=== PATIENT | female | born 1990 | race Caucasian/White ===

== ENCOUNTER 2023-10-04 22:28 | Emergency (ER) | payer SELFPAY ==
[2023-10-04 22:36] VITALS: BP 117/73
--- NOTE | 2023-10-04 23:09 | ED.GENMED ---
History of Present Illness
<DESTINY Gonzales - Last Filed: 10/05/23 05:56>
General
Chief Complaint: Blood and Body Fluid Exposure
Source: patient
Exam Limitations: none
Time Seen by Provider: 10/04/23 22:46
Nursing documentation reviewed up to this point in time: agreed with
History of Present Illness
History of Present Illness:
33 year old female presenting for evaluation of blood/bodily fluid exposure. Pt works in the [employer] and states she was splashed in the right eye with blood tinged sputum from a tracheostomy. Pt adds that she irrigated her eye with soap and water for
approximately 15 seconds prior to being seen in the ED. Denies changes in vision, pain, and discharge from the affected eye. Most recent tetanus booster was 2018 per pt.
Review of Systems
<DESTINY Gonzales - Last Filed: 10/05/23 05:56>
Review of Systems
Allergies reviewed?: Yes
All Other Systems: ROS reviewed and negative except as documented in HPI and ROS
Phy Exam
<DESTINY Gonzales - Last Filed: 10/05/23 05:56>
General Physical Exam
General Presentation: well appearing
General age: appears stated age
General Habitus: normal
General Mental: alert
General Hydration: appears well hydrated
Eye Exam
Eye Exam: PERRL, EOMI, conjunctiva normal and visual acuity normal
Course
<DESTINY Gonzales - Last Filed: 10/05/23 05:56>
Orders/Labs/Results
Orders:
Orders
10/04/23 23:03
Tetanus/Diphth/Acelpertussis [Adacel] 0.5 ml IM .ONCE ONE
10/04/23 23:04
Pt has had a significant HIV exposure? Routine
HIV Exposure is significant?: Yes
HIV Combo Urgent
Hepatitis B Surface Antibody Urgent
Hepatitis B Surface Antigen Urgent
Hepatitis C Antibody Urgent
10/04/23 23:07
Tetracaine HCl [Tetracaine 0.5% Ophthalmic Solution] 1 drop .ROUTE .STK-MED ONE
10/04/23 23:52
Tetracaine HCl [Tetracaine 0.5% Ophthalmic Solution] See Dose Instructions OPHTH ONCE ONE
Vital Signs
Initial and Last Documented VS:
Initial Vital Signs
Temp Pulse Resp BP Pulse Ox
97.9 F 78 18 117/73 96
10/04/23 22:36 10/04/23 22:36 10/04/23 22:36 10/04/23 22:36 10/04/23 22:36
Last Documented Vital Signs
Temp Pulse Resp BP Pulse Ox
97.9 F 78 18 117/73 96
10/04/23 22:36 10/04/23 22:36 10/04/23 22:36 10/04/23 22:36 10/04/23 22:36
<Dominick Stone, DO - Last Filed: 10/05/23 00:05>
Orders/Labs/Results
Orders:
Orders
10/04/23 23:03
Tetanus/Diphth/Acelpertussis [Adacel] 0.5 ml IM .ONCE ONE
10/04/23 23:04
Pt has had a significant HIV exposure? Routine
HIV Exposure is significant?: Yes
HIV Combo Urgent
Hepatitis B Surface Antibody Urgent
Hepatitis B Surface Antigen Urgent
Hepatitis C Antibody Urgent
10/04/23 23:07
Tetracaine HCl [Tetracaine 0.5% Ophthalmic Solution] 1 drop .ROUTE .STK-MED ONE
10/04/23 23:52
Tetracaine HCl [Tetracaine 0.5% Ophthalmic Solution] See Dose Instructions OPHTH ONCE ONE
Vital Signs
Initial and Last Documented VS:
Initial Vital Signs
Temp Pulse Resp BP Pulse Ox
97.9 F 78 18 117/73 96
10/04/23 22:36 10/04/23 22:36 10/04/23 22:36 10/04/23 22:36 10/04/23 22:36
Last Documented Vital Signs
Temp Pulse Resp BP Pulse Ox
97.9 F 78 18 117/73 96
10/04/23 22:36 10/04/23 22:36 10/04/23 22:36 10/04/23 22:36 10/04/23 22:36
<DESTINY Gonzales - Last Filed: 10/05/23 05:56>
MDM/Problems Addressed
MDM/Problems Addressed:
Nima lens applied to R eye for one hour.
Tetanus/Diphth/Acelpertussis [Adacel] 0.5 ml IM
Tetracaine HCl [Tetracaine 0.5% Ophthalmic Solution]
HIV Combo
Hepatitis B Surface Antibody
Hepatitis B Surface Antigen
Hepatitis C Antibody
<DESTINY Gonzales - Last Filed: 10/05/23 05:56>
*Critical Care Note
Total Time (30-74mins, 75-104mins- exclusive of procedures): Not Applicable
ED Attending Note
<DESTINY Gonzales - Last Filed: 10/05/23 05:56>
-
Portions of this chart may have been created with voice recognition software.� Occasional wrong word or��sound alike� substitutions may have occurred due to the inherent limitations of voice recognition software.
<Dominick Stone DO - Last Filed: 10/05/23 00:05>
ED Attending Note
Patient seen and examined by attending physician: Yes
I performed the substantive portion of visit, reviewed & personally made and approve the management plan that is documented in note by myself or SOPHIA.: Yes
ED Attending Note:
Pleasant 33-year-old female employee that presents with after getting blood-tinged tracheal secretions splashed in her right eye. She states that there was some minimal amount of blood in the secretions. Patient states that the patient is
well-known to the her floor. Patient works in the [employer]. Patient denies visual changes. Patient has no complaints at this time. Patient was seen in conjunction with the PA student. I have reviewed and agree with the history and treatment plan
presented. On my independent physical exam, patient is awake, alert, and oriented x3, no acute distress. Eye appears normal from external appearance. There is no erythema. Full ocular movements are intact.
After discussing the exposure, patient declined to get HIV prophylaxis. She came to this decision to shared decision making. Patient is low risk. She is a patient well-known to the hospital staff that does not appear to have a history of HIV or
hepatitis. Source patient to be tested. Patient does understand that she can change her mind about prophylaxis.
Discharge Plan
Departure
Patient Disposition: Home (Routine Discharge)
Date of Disposition: 10/05/23
Time of Disposition: 00:05
Patient with high blood pressure during this ER visit?: No
Condition: Good
Discharge Problem:
Patient exposure to body fluids
Instructions: Blood or body fluid exposure
Referrals:
[facility] [Outside] - Next open appointment
UNKNOWN - PT DOES,NOT KNOW [Family Provider] -
Stand Alone Forms: Bl/Fluid Consent/Declination, Blood Body/Fluid Exposure
Activity Restrictions/Additional Instructions:
Please follow-up with occupational health
It was a pleasure meeting you and taking part in your care. We hope for your continued healing and wellness.
Please read discharge instructions in their entirety. However, they are for general education and may not describe your exact diagnosis at discharge. Information on your ER visit and medical conditions were discussed with you along with appropriate
follow up information...
If indicated, please take your medications as instructed and indicated on discharge paperwork.
Please schedule a follow up appointment as directed. Call to schedule an appointment
Please return to the emergency department with ANY change in, persisting, or worsening of symptoms. If any of your symptoms do not improve, or persist, or become more severe within 6-12 hours, please return to the emergency department for further
care.
Please return to the emergency department if you develop a headache, neck pain/stiffness, fever greater than 100.4F, chest pain, shortness of breath, persistent nausea, vomiting, slurred speech, difficulty walking, numbness/tingling, weakness, signs
of infection or any other symptoms that are worrisome to you.
If you have any questions or concerns please do not hesitate to call the Hospital at or E-mail me directly at [email or web address]
Interventions
Interventions:
*Risk Screen - Suicide Last Done: 10/04/23 22:36
*General Assessment Last Done: 10/04/23 22:36
*Neglect/Abuse Screening Last Done: 10/04/23 22:36
ED- Fall Risk Assessment Last Done: 10/05/23 00:26
*ED COVID-19 Vaccine History Last Done: 10/04/23 22:36
*Nursing Disposition Last Done: 10/05/23 00:26
ED-EENT Assessment Last Done: 10/05/23 00:23
Discharge Date and Time
Discharge Date/Time: 10/05/23 00:26
Print Language: TRISTANIAN
[2023-10-04] MEDS: ADACEL 0.5 ML IM (23:29)
[2023-10-04] MEDS: TETRACAINE 0.5% OPHTHALMIC SOLUTION 3 DROP OPHTH (23:53)
[2023-10-05 03:21] LABS: Hepatitis B Surface Antigen Negative (Negative)
[2023-10-05 03:38] LABS: Hepatitis B Surface Antibody Positive; Hepatitis C Antibody Negative (Negative)
[2023-10-05 13:13] LABS: HIV Combo Negative (Negative)
== END 2023-10-05 00:26 | disposition home or self-care (01) ==
LOC: EMR 22:28
PROVIDERS: EMERGENCY PHYSICIAN Student in an Organized Health Care Education/Training Program
DX: Z77.21 Contact with and (suspected) exposure to potentially hazardous body fluids (principal); Y99.0 Civilian activity done for income or pay; Z23 Encounter for immunization
CPT/HCPCS: 99282; 90471; 86706; 86803; 87340; 87389; 90715

== ENCOUNTER → 2024-09-29 16:36 | Outpatient (REF) | payer BC, SELFPAY ==
[2024-09-29 17:18] LABS: % Basophils 0.7 % (0-2); % Eosinophils 1.8 % (0-6); % Immature Granulocytes 0.3 % (0-0.5); % Lymphocytes 35.3 % (20.5-51.1); % Monocytes 5.1 % (1.7-9.3); % Neutrophils 56.8 % (42.2-75.2); Absolute Basophils 0.1 10^3/uL (0-0.2); Absolute Eosinophils 0.1 10^3/uL (0-0.7); Absolute Lymphocytes 2.5 10^3/uL (1.2-3.4); Absolute Monocytes 0.4 10^3/uL (0.1-0.6); Hematocrit 37.3 % (37.0-47.0); Hemoglobin 12.7 g/dL (12.0-16.0); Mean Corpuscular Hgb 29.7 pg (27.0-31.0); Mean Corpuscular Volume 87.4 fL (81.0-99.0); Mean Platelet Volume 10.6 fL (7.4-10.4); Nucleated Red Blood Cells % 0 %; Platelet Count 274 10^3/uL (130-400); Red Blood Cell Count 4.27 10^6/uL (4.20-5.40); Red Cell Dist. Width 13.5 % (11.5-14.5)
[2024-09-29 17:41] LABS: ALT (SGPT) 18 U/L (0-35); AST (SGOT) 23 U/L (14-36); Albumin 4.4 g/dl (3.5-5.0); Alkaline Phosphatase 64 U/L (38-126); Blood Urea Nitrogen 9 mg/dl (7-17); Calcium 9.4 mg/dl (8.4-10.2); Carbon Dioxide 24 mmol/L (22-30); Chloride 109 mmol/L (98-107); Glucose 81 mg/dl (70-99); Potassium 4.1 mmol/L (3.5-5.1); Sodium 141 mmol/L (135-145); Total Bilirubin 0.6 mg/dl (0.2-1.3); Total Protein 7.3 g/dl (6.3-8.2); eGFR > 60.00
[2024-09-29 17:59] LABS: Free T3 3.11 pg/ml (2.77-5.27); Free T4 0.85 ng/dl (0.78-2.19)
[2024-09-29 18:12] LABS: TSH 1.05 uIU/ml (0.47-4.68)
[2024-10-02 02:58] LABS: Total T3 (Sendout) 90 ng/dL (80-200)
== END ==
LOC: REG 16:36
PROVIDERS: ATTENDING PHYSICIAN Physician Assistant
DX: E05.90 Thyrotoxicosis, unspecified without thyrotoxic crisis or storm (principal)
CPT/HCPCS: 36415; 80053; 84439; 84443; 84480; 84481; 85025

== ENCOUNTER → 2024-12-10 08:18 | Outpatient (REF) | payer BC, SELFPAY ==
[2024-12-10 10:48] LABS: Hematocrit 37.5 % (37.0-47.0); Hemoglobin 12.4 g/dL (12.0-16.0); Mean Corp Hgb Conc. 33.1 g/dL (33.0-37.0); Mean Corpuscular Volume 90.4 fL (81.0-99.0); Nucleated Red Blood Cells % 0 %; Platelet Count 299 10^3/uL (130-400); Red Cell Dist. Width 12.0 % (11.5-14.5)
[2024-12-10 11:28] LABS: ALT (SGPT) 13 U/L (0-35); AST (SGOT) 19 U/L (14-36); Albumin 4.8 g/dl (3.5-5.0); Alkaline Phosphatase 82 U/L (38-126); Blood Urea Nitrogen 9 mg/dl (7-17); Calcium 9.4 mg/dl (8.4-10.2); Carbon Dioxide 25 mmol/L (22-30); Chloride 105 mmol/L (98-107); Glucose 83 mg/dl (70-99); Potassium 4.4 mmol/L (3.5-5.1); Sodium 137 mmol/L (135-145); Total Protein 7.5 g/dl (6.3-8.2); eGFR > 60.00
[2024-12-10 11:35] LABS: Free T3 4.12 pg/ml (2.77-5.27)
[2024-12-10 11:48] LABS: TSH 3.45 uIU/ml (0.47-4.68)
[2024-12-12 07:09] LABS: Total T3 (Sendout) 144 ng/dL (80-200)
== END ==
LOC: REG 08:18
PROVIDERS: ATTENDING PHYSICIAN Physician Assistant; FAMILY PHYSICIAN Family Medicine
DX: E05.90 Thyrotoxicosis, unspecified without thyrotoxic crisis or storm (principal)
CPT/HCPCS: 36415; 80053; 84439; 84443; 84480; 84481; 85025